=== PATIENT | female | born 1960 | race Caucasian/White ===

== ENCOUNTER 2016-08-28 11:42 | Observation (INO) ==
[2016-08-28] MEDS ORDERED: Ondansetron 4 MG/2 ML VIAL IVP ONE (11:53)
[2016-08-28] MEDS ORDERED: *HR* HYDROmorphone (PF) 1 MG/ML SYRINGE IVP ONE (11:53)
--- NOTE | 2016-08-28 11:56 | Emergency Department Note ---
Disposition Clinical Impression: Acute cholecystitis Disposition: Admitted As Inpatient Condition: Fair Referrals: Milton Pop DO [Non-Partnered Physician] - Forms: Work/School Release, ED Satisfaction Letter Time of Disposition: 14:18 Abdominal Pain HPI - General Chief Complaint: ED Abdominal Pain Stated Complaint: "Gallstone attack" Time Seen by Provider: 08/28/16 11:51 Source: patient, family Mode of arrival: ambulatory Limitations: no limitations Nursing Notes Reviewed: Yes Vital Signs Reviewed: Yes - History of Present Illness HPI Narrative: 56-year-old female comes in with acute onset of right upper quadrant pain after eating a sanchez sandwich this morning at 9:30. 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 Clinical presentation is consistent with gallbladder disease. Pt Subjective Complaint: abdominal pain Onset (ago): Just UNDERBASTER Consistency: constant Location: RUQ Pain Severity: moderate, severe Pain Scale: 6 Quality: aching Radiation: back Migration to: no migration Improves with: nothing Worsens with: nothing Context: history of similar episodes Associated symptoms: Reports: nausea, vomiting Treatments prior to arrival: none - Related Data Allergies Allergy/AdvReac Type Severity Reaction Status Date / Time benzocaine AdvReac Itching Verified 08/28/16 11:44 All systems ED: reviewed and negative except as stated. Constitutional: Denies: fever, chills, weakness, weight change Eyes: Denies: eye pain, eye discharge, vision change ENT ED: Denies: ear pain, throat pain, dental pain, hearing loss, epistaxis, congestion, dysphagia Cardiovascular: Denies: chest pain, palpitations, dyspnea on exertion, edema, syncope Respiratory: Denies: cough, dyspnea, wheezes, hemoptysis, stridor Gastrointestinal: Reports: abdominal pain, nausea, vomiting. Denies: diarrhea, constipation, hematemesis, melena, hematochezia Genitourinary: Denies: dysuria, frequency, hematuria, discharge Musculoskeletal: Denies: back pain, neck pain, arthralgia, myalgia Integumentary: Denies: rash, abrasion, lesions Neurological: Denies: headache, weakness, numbness, paresthesias, confusion, abnormal gait, vertigo Psychiatric: Denies: anxiety, depression, suicidal thoughts, homicidal thoughts , auditory hallucinations, visual hallucinations Endocrine: Denies: fatigue Hematological/Lymphatic: Denies: easy bleeding, easy bruising Allergic/Immunologic: Denies: facial swelling, urticaria Abdominal Pain PMH - Past Medical History Medical history: Reports: asthma, GERD Female Surgical History: Reports: other Psychiatric history: Reports: no psych history - Social History Smoking status: Never smoker Alcohol use: Reports: none Drug use: Reports: none Physical Exam - General Limitations: no limitations General appearance: alert, in no apparent distress - Head Head exam: atraumatic, normocephalic, normal inspection - Eye Eye exam: Present: normal appearance, PERRL, EOMI - ENT ENT exam: normal exam, normal oropharynx, mucous membranes moist - Neck Neck exam: Present: normal inspection, full ROM, trachea midline - Chest Chest inspection: Present: normal inspection, symmetric chest wall rise - Respiratory Respiratory exam: Present: normal lung sounds bilaterally - Cardiovascular Cardiovascular exam: Present: regular rate, normal rhythm, normal heart sounds - Abdominal Exam Abdominal exam: Present: soft, tenderness, Preston's sign. Absent: guarding, rebound Abdominal tenderness: Present: RUQ - Extremities Exam Extremities exam: Present: normal inspection, full ROM. Absent: tenderness, pedal edema - Expanded Lower Extremity Exam Neurovascular/Tendon exam: Absent: motor deficit, sensory deficit, tendon deficit Gait: observed and normal - Back Exam Back exam: Present: normal inspection, full ROM. Absent: tenderness - Neurological Exam Neurological exam: Present: alert, oriented X3 - Psychiatric Psychiatric exam: Present: normal affect, normal mood - Skin Skin exam: Present: warm, dry, intact, normal color Course - Consultations Consultation #1: Discussed with Dr. Coffman, admit. Time: 14:16 Vital Signs Temperature 97.5 F L 08/28/16 11:44 Pulse Rate 72 08/28/16 11:44 Respiratory Rate 18 08/28/16 11:44 Blood Pressure 166/101 08/28/16 11:44 O2 Sat by Pulse Oximetry 100 08/28/16 11:44 Temperature 97.5 F L 08/28/16 11:44 Pulse Rate 89 08/28/16 13:33 Respiratory Rate 18 08/28/16 13:33 Blood Pressure 170/79 08/28/16 13:33 O2 Sat by Pulse Oximetry 97 08/28/16 13:33 Oxygen Delivery Oxygen Delivery Nasal Cannula Abdominal Pain - Lab Data Lab results reviewed: Yes I reviewed the patient's lab results. Result diagrams: 08/28/16 12:50 08/28/16 12:50 Lab Results 08/28/16 08/28/16 08/28/16 Range/Units 12:50 12:50 12:50 WBC 8.5 (4.3-11.1) K/mcL RBC 5.61 H (3.82-4.97) M/mcL Hgb 14.6 (11.5-15.4) g/dL Hct 45.4 H (35.3-44.9) % MCV 80.9 L (83.0-100.0) fL MCH 26.0 L (28.0-33.3) pg MCHC 32.2 (31.6-35.5) g/dL RDW 14.8 H (11.5-14.5) % Plt Count 269 (140-400) K/mcL MPV 9.8 (9.4-12.4) fL Immature Gran % 0.4 (0-4) % Seg Neutrophils % 63.4 % Lymphocytes % 18.1 % Monocytes % 12.4 % Eosinophils % 4.6 % Basophils % 1.1 % Neutrophils # 5.4 (1.6-8.9) K/mcL Lymphocytes # 1.5 (0.6-4.6) K/mcL Monocytes # 1.1 (0.0-1.3) K/mcL Eosinophils # 0.4 (0.0-0.6) K/mcL Basophils # 0.1 (0.0-0.2) K/mcL Sodium 139 (136-145) mEq/L Potassium 3.9 (3.5-4.5) mEq/L Chloride 109 (98-109) mEq/L Carbon Dioxide 23 (19-29) mEq/L BUN 12 (7-20) mg/dL Creatinine 0.87 (0.57-1.11) mg/dL Est GFR ( Amer) > 60 (> 60) Est GFR (Non-Af Amer) > 60 (> 60) BUN/Creatinine Ratio 14 (6-26) Glucose 89 (70-99) mg/dL Calculated Osmolality 287 (280-300) Lactic Acid 1.5 (0.5-2.2) mmol/L Calcium 10.3 (8.6-10.8) mg/dL Total Bilirubin 0.4 (0.2-1.2) mg/dL Direct Bilirubin 0.2 (0.0-0.5) mg/dL Indirect Bilirubin 0.2 (0.0-1.2) mg/dL AST 37 H (5-34) Units/L ALT 40 (0-55) Units/L Alkaline Phosphatase 89 (38-126) Units/L Serum Total Protein 7.1 (6.0-8.3) g/dL Albumin 3.3 L (3.5-5.0) g/dL Globulin 3.8 H (2.4-3.5) g/dL Albumin/Globulin Ratio 0.9 L (1.1-2.2) Amylase 68 (25-125) Units/L Lipase 55 (8-78) Units/L Urine Color (Yellow) Urine Clarity (Clear) Urine pH (5.0-8.0) pH Units Ur Specific [place] (1.010-1.025) Urine Protein (Neg-Trace) mg/dL Urine Glucose (UA) (Normal) mg/dL Urine Ketones (Negative) mg/dL Urine Blood (Negative) Urine Nitrite (Negative) Urine Bilirubin (Negative) Urine Urobilinogen (Normal) mg/dL Ur Leukocyte Esterase (Negative) Urine Microscopic RBC (0-3) per hpf Urine Microscopic WBC (0-3) per hpf Ur Squamous Epith Cells (None-Few) per lpf Urine Bacteria (None-Few) per hpf Hyaline Casts (None-Few) per lpf Ur Culture Indicated? (NO) 08/28/16 Range/Units 12:59 WBC (4.3-11.1) K/mcL RBC (3.82-4.97) M/mcL Hgb (11.5-15.4) g/dL Hct (35.3-44.9) % MCV (83.0-100.0) fL MCH (28.0-33.3) pg MCHC (31.6-35.5) g/dL RDW (11.5-14.5) % Plt Count (140-400) K/mcL MPV (9.4-12.4) fL Immature Gran % (0-4) % Seg Neutrophils % % Lymphocytes % % Monocytes % % Eosinophils % % Basophils % % Neutrophils # (1.6-8.9) K/mcL Lymphocytes # (0.6-4.6) K/mcL Monocytes # (0.0-1.3) K/mcL Eosinophils # (0.0-0.6) K/mcL Basophils # (0.0-0.2) K/mcL Sodium (136-145) mEq/L Potassium (3.5-4.5) mEq/L Chloride (98-109) mEq/L Carbon Dioxide (19-29) mEq/L BUN (7-20) mg/dL Creatinine (0.57-1.11) mg/dL Est GFR ( Amer) (> 60) Est GFR (Non-Af Amer) (> 60) BUN/Creatinine Ratio (6-26) Glucose (70-99) mg/dL Calculated Osmolality (280-300) Lactic Acid (0.5-2.2) mmol/L Calcium (8.6-10.8) mg/dL Total Bilirubin (0.2-1.2) mg/dL Direct Bilirubin (0.0-0.5) mg/dL Indirect Bilirubin (0.0-1.2) mg/dL AST (5-34) Units/L ALT (0-55) Units/L Alkaline Phosphatase (38-126) Units/L Serum Total Protein (6.0-8.3) g/dL Albumin (3.5-5.0) g/dL Globulin (2.4-3.5) g/dL Albumin/Globulin Ratio (1.1-2.2) Amylase (25-125) Units/L Lipase (8-78) Units/L Urine Color Yellow (Yellow) Urine Clarity Clear (Clear) Urine pH 6.0 (5.0-8.0) pH Units Ur Specific [place] 1.016 (1.010-1.025) Urine Protein Negative (Neg-Trace) mg/dL Urine Glucose (UA) Normal (Normal) mg/dL Urine Ketones Negative (Negative) mg/dL Urine Blood Trace H (Negative) Urine Nitrite Negative (Negative) Urine Bilirubin Negative (Negative) Urine Urobilinogen Normal (Normal) mg/dL Ur Leukocyte Esterase Moderate H (Negative) Urine Microscopic RBC 3-5 H (0-3) per hpf Urine Microscopic WBC 3-5 H (0-3) per hpf Ur Squamous Epith Cells Many H (None-Few) per lpf Urine Bacteria None Seen (None-Few) per hpf Hyaline Casts None Seen (None-Few) per lpf Ur Culture Indicated? YES A (NO) - Radiology Data Radiology results reviewed: Yes I reviewed the patient's radiology results. Gallbladder Ultrasound 08/28/16 11:53 IMPRESSION: 1. Cholelithiasis with dilated common bile duct measuring 1.1 cm in diameter. Acute versus chronic cholecystitis cannot be excluded. Nuclear medicine hepatobiliary scintigraphy should be considered for further evaluation. 2. Fatty infiltration of the liver. 3. Obscuration of the pancreas due to bowel gas. Findings sent to the Results Communication [facility] to be communicated to the clinical service. D/ / Gian Cantu MD / Gian Cantu MD Interpreting Provider: Gian Cantu MD - EKG Data EKG attestation: Yes I reviewed and interpreted this EKG. EKG shows normal: sinus rhythm Rate: normal Rhythm: NSR Interpretation: no acute changes
[2016-08-28 12:57] LABS: Basophils # 0.1 K/mcL (0.0-0.2); Basophils % 1.1 %; Eosinophils # 0.4 K/mcL (0.0-0.6); Eosinophils % 4.6 %; Hematocrit 45.4 % (35.3-44.9); Hemoglobin 14.6 g/dL (11.5-15.4); Immature Granulocytes % 0.4 % (0-4); Lymphocytes # 1.5 K/mcL (0.6-4.6); Lymphocytes % 18.1 %; Mean Corpuscular HGB Conc 32.2 g/dL (31.6-35.5); Mean Corpuscular Volume 80.9 fL (83.0-100.0); Mean Platelet Volume 9.8 fL (9.4-12.4); Monocytes # 1.1 K/mcL (0.0-1.3); Monocytes % 12.4 %; Neutrophils # 5.4 K/mcL (1.6-8.9); Platelet Count 269 K/mcL (140-400); Red Blood Count 5.61 M/mcL (3.82-4.97); Red Cell Distribution Width 14.8 % (11.5-14.5); Segmented Neutrophils % 63.4 %
[2016-08-28 13:12] LABS: Bilirubin,Urine Negative (Negative); Blood,Urine Trace (Negative); Clarity,Urine Clear (Clear); Color,Urine Yellow (Yellow); Glucose,Urine (UA) Normal (Normal); Ketones,Urine Negative (Negative); Leukocyte Esterase,Urine Moderate (Negative); Nitrite,Urine Negative (Negative); Protein,Urine Negative (Neg-Trace); Specific Gravity,Urine 1.016 (1.010-1.025); Urobilinogen,Urine Normal (Normal)
[2016-08-28 13:13] LABS: Alanine Aminotransferase 40 Units/L (0-55); Albumin 3.3 g/dL (3.5-5.0); Albumin/Globulin Ratio 0.9 (1.1-2.2); Alkaline Phosphatase 89 Units/L (38-126); Amylase 68 Units/L (25-125); Aspartate Amino Transferase 37 Units/L (5-34); BUN/Creatinine Ratio 14 (6-26); Bilirubin,Direct 0.2 mg/dL (0.0-0.5); Bilirubin,Indirect 0.2 mg/dL (0.0-1.2); Bilirubin,Total 0.4 mg/dL (0.2-1.2); Blood Urea Nitrogen 12 mg/dL (7-20); Calcium 10.3 mg/dL (8.6-10.8); Carbon Dioxide 23 mEq/L (19-29); Chloride 109 mEq/L (98-109); Globulin 3.8 g/dL (2.4-3.5); Glucose 89 mg/dL (70-99); Lipase 55 Units/L (8-78); Osmolality,Calculated 287 (280-300); Potassium 3.9 mEq/L (3.5-4.5); Sodium 139 mEq/L (136-145); Total Protein 7.1 g/dL (6.0-8.3); eGFR For African Americans > 60 (> 60); eGFR For Non-African Americans > 60 (> 60)
[2016-08-28 13:19] LABS: Bacteria,Urine None Seen per hpf (None-Few); Hyaline Casts,Urine None Seen per lpf (None-Few); Squamous Epithelial Cell,Urine Many per lpf (None-Few)
--- NOTE | 2016-08-28 15:57 | General Surg History&Physical ---
Date of Encounter: 08/28/16 Time of Encounter: 15:54 Assessment and Plan (1) Symptomatic cholelithiasis Current Visit: Yes Status: Acute The assessment and plan as outlined above was discussed with the patient and/or family members who expressed understanding and agreement. All questions were answered. NPO IV fluids Plan for cholecystectomy likely in the next 24 hours Supportive care/pain control Serial abdominal exams Repeat am labs (2) Asthma Current Visit: Yes Status: Chronic The assessment and plan as outlined above was discussed with the patient and/or family members who expressed understanding and agreement. All questions were answered. Continue home medications Qualifiers: Asthma severity: mild intermittent Asthma complication type: uncomplicated Qualified Code(s): J45.20 - Mild intermittent asthma, uncomplicated (3) Hypertension Current Visit: Yes Status: Chronic The assessment and plan as outlined above was discussed with the patient and/or family members who expressed understanding and agreement. All questions were answered. Continue home medication regimen with a sip of water Qualifiers: Hypertension type: essential hypertension Qualified Code(s): I10 - Essential (primary) hypertension (4) DVT prophylaxis Current Visit: Yes Status: Acute The assessment and plan as outlined above was discussed with the patient and/or family members who expressed understanding and agreement. All questions were answered. EPCDs to bilateral lower extremities for DVT prophylaxis History of Present Illness Chief complaint: RUQ pain HPI: Ms. Vásquez is a 56 year old female who presents to the ED with sudden onset of RUQ pain after eating a sanchez sandwich at 0930 this morning. She states that the pain is sharp and stabbing and is located in the RUQ. It does occasionally radiate into her back. She has had 2 previous episodes similar to this with the last episode being 6 months ago. She states that this is the worst that the pain has ever been. Denies nausea and vomiting. Admits to reflux which has been uncontrolled for at least the past year. Denies any changes in bowel habits. Denies any fevers/chills. Denies any shortness of breath or chest pains. Denies any difficulty with urination. She does have a known history of gallstones which was confirmed by US. Her CBD was dilated at 1.1cm. Past Med Surg Social Fam HX - Past Medical History Source: patient Medical history: asthma, GERD, hypertension Psychiatric history: no psych history - Past Surgical History Surgical History: other (tubal ligation, achilles tendon repair, repair of shattered heel) - Social History Smoking Status: Never smoker Smokeless Tobacco Status: No Alcohol use: none Drug use: none Occupational status: employed Current living situation: Home - Independent Activity Level: Independent ambulation - Family History Mother Living Status: Age at : 92 Cause of : pneumonia Father Living Status: Age at : 68 Hx Family Cancer: Yes (metastatic cancer, unknown primary) Sister Hx Family Cardiac Disorders: Yes (CAD) Brother Hx Family Cardiac Disorders: Yes (CAD) Hx Family Neurologic Disorders: Yes (epilepsy) Medications and Allergies Albuterol Sulfate [Proair Hfa] 2 puff IH Q4H PRN 08/28/16 [History] Fluticasone/Salmeterol [Advair 250-50 Diskus] 1 each IH DAILY 08/28/16 [History] Levocetirizine Dihydrochloride [Xyzal] 5 mg PO DAILY 08/28/16 [History] Lisinopril [Zestril] 10 mg PO DAILY 08/28/16 [History] Mometasone Furoate [Nasonex] 2 spray NS DAILY PRN 08/28/16 [History] Allergies benzocaine Adverse Reaction (Verified 08/28/16 11:44) Itching Review of Systems All systems PM: reviewed and no additional remarkable complaints except as stated (in the HPI) All systems PM: A 10-system review of systems was performed and is negative for pertinent findings except as documented above in the HPI. General Surgery Exam Initial Vital Signs Temp Pulse Resp BP Pulse Ox 97.5 F L 72 18 166/101 100 08/28/16 11:44 08/28/16 11:44 08/28/16 11:44 08/28/16 11:44 08/28/16 11:44 - General physical appearance well developed, well nourished, moderate pain - Eyes PERRL, normal ocular movement - ENT normal mucosa, atraumatic, normocephalic - Neck trachea midline - Respiratory normal respiratory effort, clear to auscultation - Cardiovascular Cardiovascular exam: Present: RRR - Abdomen Abdomen general surgery: Present: bowel sounds present, soft, tender Abdominal Tenderness: Present: RUQ - Integumentary Integumentary general surgery: Present: warm and dry - Neurologic Present: CN 2-12 grossly intact - Psychiatric Psychiatric general surgery: Present: appropriate, oriented to person, oriented to place, oriented to time, speech is normal, memory intact Results - Labs 08/28/16 12:50 08/28/16 12:50 Abnormal lab results RBC 5.61 M/mcL (3.82-4.97) H 08/28/16 12:50 Hct 45.4 % (35.3-44.9) H 08/28/16 12:50 MCV 80.9 fL (83.0-100.0) L 08/28/16 12:50 MCH 26.0 pg (28.0-33.3) L 08/28/16 12:50 RDW 14.8 % (11.5-14.5) H 08/28/16 12:50 AST 37 Units/L (5-34) H 08/28/16 12:50 Albumin 3.3 g/dL (3.5-5.0) L 08/28/16 12:50 Globulin 3.8 g/dL (2.4-3.5) H 08/28/16 12:50 Albumin/Globulin Ratio 0.9 (1.1-2.2) L 08/28/16 12:50 Urine Blood Trace (Negative) H 08/28/16 12:59 Ur Leukocyte Esterase Moderate (Negative) H 08/28/16 12:59 Urine Microscopic RBC 3-5 per hpf (0-3) H 08/28/16 12:59 Urine Microscopic WBC 3-5 per hpf (0-3) H 08/28/16 12:59 Ur Squamous Epith Cells Many per lpf (None-Few) H 08/28/16 12:59 Ur Culture Indicated? YES (NO) A 08/28/16 12:59 All other labs normal. - Imaging US - abdomen: report reviewed Additional studies: Gallbladder Ultrasound 08/28/16 11:53 IMPRESSION: 1. Cholelithiasis with dilated common bile duct measuring 1.1 cm in diameter. Acute versus chronic cholecystitis cannot be excluded. Nuclear medicine hepatobiliary scintigraphy should be considered for further evaluation. 2. Fatty infiltration of the liver. 3. Obscuration of the pancreas due to bowel gas. Findings sent to the Results Communication Center to be communicated to the clinical service. D/ / Gian Cantu MD / Gian Cantu MD Interpreting Provider: Gian Cantu MD - Attending Attestation I examined this patient and my medical decision-making was reviewed with the CROP QUANTITATIVE GENETICIST/PA/Advanced Practice Nurse/Resident Physician. I agree with the documented findings, disposition and treatment plan as described except to the extent set forth below.
[2016-08-28] MEDS ORDERED: Ondansetron 4 MG/2 ML VIAL IVP PRN (16:08)
[2016-08-28] MEDS ORDERED: Naloxone 0.4 MG/ML INJ IVP PRN (16:08)
[2016-08-28] MEDS ORDERED: Fluticasone Propionate Nasal 50 MCG/SPRAY BOTTLE NS PRN (16:11)
--- NOTE | 2016-08-28 16:11 | Electrocardiograph Report ---
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
[2016-08-28] MEDS: *HR* HYDROmorphone (PF) 1 MG/ML SYRINGE IVP PRN (16:38)
[2016-08-28] MEDS: 0.9 % Sodium Chloride 1,000 ML IVC SCH (16:39)
--- NOTE | 2016-08-28 23:00 | Anesthesia Evaluation PreOp ---
<Cornelia Jay - Last Filed: 08/28/16 22:59> Date of Encounter: 08/28/16 - Past History Planned Operation: Lap cholecystectomy Cardiac History: HTN Pulmonary History: Asthma RESPIRATORY MANAGER History: Denies Any Significant HX Other Medical History: GERD Anesthesia History: Past Anesthesia (tubal ligation, achilles tendon repair, repair of shattered heel) Alcohol Use: none Drug use: none Medications and Allergies Albuterol Sulfate [Proair Hfa] 2 puff IH Q4H PRN 08/28/16 [History] Fluticasone/Salmeterol [Advair 250-50 Diskus] 1 each IH DAILY 08/28/16 [History] Levocetirizine Dihydrochloride [Xyzal] 5 mg PO DAILY 08/28/16 [History] Lisinopril [Zestril] 10 mg PO DAILY 08/28/16 [History] Mometasone Furoate [Nasonex] 2 spray NS DAILY PRN 08/28/16 [History] Docusate [Colace] 100 mg PO BID #30 capsule 08/29/16 [Rx] OxyCODONE/APAP 5/325 [Percocet 5/325 MG] 1 each PO Q6HR PRN #30 tablet 08/29/16 [Rx] Allergies benzocaine Adverse Reaction (Verified 08/28/16 11:44) Itching - Meds/Allergy Pre-op Review Medications Reviewed: Yes Allergies Reviewed: Yes Beta Blockers on Current Med List: No Anesthesia Results - Labs 08/28/16 12:50 08/28/16 12:50 - Imaging EKG: report reviewed, image reviewed (SR, wnl) Anesthesia Exam Last Vital Signs Temp 97.6 F 08/28/16 19:02 Pulse 66 08/28/16 19:02 Resp 14 08/28/16 19:02 BP 116/76 08/28/16 19:02 Pulse Ox 94 08/28/16 19:02 Weight: 90 kg Anesthesia Assess/Plan ASA Score: 2 Anesthetic Plan: General Monitoring Plan: Standard Monitors Recovery Plan: PACU <Ambrose Rooney - Last Filed: 08/29/16 18:10> Date of Encounter: 08/29/16 Time of Encounter: 16:00 - Past History Cardiac History: HTN Pulmonary History: Asthma RESPIRATORY MANAGER History: Denies Any Significant HX Other Medical History: GERD Anesthesia History: Past Anesthesia : No Alcohol Use: none Drug use: none - Meds/Allergy Pre-op Review Medications Reviewed: Yes Allergies Reviewed: Yes Beta Blockers on Current Med List: No Anesthesia Results - Labs 08/29/16 02:36 08/29/16 02:36 - Imaging EKG: report reviewed Anesthesia Exam O2 Sat Weight 88.677 kg O2 Sat by Pulse Oximetry 98 O2 Sat by Pulse Oximetry 97 O2 Sat by Pulse Oximetry 98 O2 Sat by Pulse Oximetry 100 O2 Sat by Pulse Oximetry 100 O2 Sat by Pulse Oximetry 100 O2 Sat by Pulse Oximetry 100 O2 Sat by Pulse Oximetry 99 O2 Sat by Pulse Oximetry 96 O2 Sat by Pulse Oximetry 98 O2 Sat by Pulse Oximetry 99 O2 Sat by Pulse Oximetry 97 O2 Sat by Pulse Oximetry 94 Vital Signs Temp Pulse Resp BP Pulse Ox 97.5 F L 72 18 166/101 100 08/28/16 11:44 08/28/16 11:44 08/28/16 11:44 08/28/16 11:44 08/28/16 11:44 Height: 5'7 NPO (# of Hours): MN0 - HEENT Pupil (Motor): Pupils equal, EOMI Mallampati: II Teeth: Normal Oral Opening: Greater than 3 - RESPIRATORY MANAGER LOC: Oriented RESPIRATORY MANAGER Motor: Normal RUE, Normal LUE, Normal RLE, Normal LLE, Normal Face RESPIRATORY MANAGER Sensory: Normal: RUE, LUE, RLE, LLE, Face - Cardiac Rhythm: Regular Murmur: None JVD: No Carotid Bruit: No - Pulmonary Breath Sounds: bilateral Clear Respiratory Effort: Symmetrical Anesthesia Assess/Plan ASA Score: 2 Modified Wilmer Scale for Level of Consciousness: Cooperative, oriented, and tranquil Anesthetic Plan: General Monitoring Plan: Standard Monitors Recovery Plan: PACU
[2016-08-29] MEDS: *HR* HYDROmorphone (PF) 1 MG/ML SYRINGE IVP PRN ×3 (00:17→17:42)
[2016-08-29 03:20] LABS: Basophils # 0.1 K/mcL (0.0-0.2); Basophils % 1.2 %; Eosinophils # 0.4 K/mcL (0.0-0.6); Eosinophils % 5.6 %; Hematocrit 40.2 % (35.3-44.9); Immature Granulocytes % 0.2 % (0-4); Lymphocytes # 1.7 K/mcL (0.6-4.6); Lymphocytes % 24.8 %; Mean Corpuscular HGB Conc 32.1 g/dL (31.6-35.5); Mean Corpuscular Hemoglobin 26.5 pg (28.0-33.3); Mean Corpuscular Volume 82.7 fL (83.0-100.0); Mean Platelet Volume 9.9 fL (9.4-12.4); Monocytes # 0.9 K/mcL (0.0-1.3); Monocytes % 13.1 %; Neutrophils # 3.7 K/mcL (1.6-8.9); Platelet Count 241 K/mcL (140-400); Red Blood Count 4.86 M/mcL (3.82-4.97); Red Cell Distribution Width 15.2 % (11.5-14.5); Segmented Neutrophils % 55.1 %
[2016-08-29 03:29] LABS: Hemoglobin 12.9 g/dL (11.5-15.4)
[2016-08-29 03:37] LABS: Alanine Aminotransferase 55 Units/L (0-55); Albumin 2.7 g/dL (3.5-5.0); Albumin/Globulin Ratio 0.9 (1.1-2.2); Alkaline Phosphatase 89 Units/L (38-126); Aspartate Amino Transferase 45 Units/L (5-34); BUN/Creatinine Ratio 14 (6-26); Bilirubin,Direct 0.2 mg/dL (0.0-0.5); Bilirubin,Indirect 0.5 mg/dL (0.0-1.2); Bilirubin,Total 0.7 mg/dL (0.2-1.2); Blood Urea Nitrogen 10 mg/dL (7-20); Calcium 9.3 mg/dL (8.6-10.8); Carbon Dioxide 20 mEq/L (19-29); Chloride 110 mEq/L (98-109); Globulin 3.1 g/dL (2.4-3.5); Glucose 90 mg/dL (70-99); Osmolality,Calculated 285 (280-300); Potassium 4.2 mEq/L (3.5-4.5); Sodium 138 mEq/L (136-145); Total Protein 5.8 g/dL (6.0-8.3); eGFR For African Americans > 60 (> 60); eGFR For Non-African Americans > 60 (> 60)
[2016-08-29] MEDS: 0.9 % Sodium Chloride 1,000 ML IVC SCH (05:03)
[2016-08-29] MEDS ORDERED: Budesonide/Formoterol 80/4.5 MDI IH SCH (09:00)
[2016-08-29] MEDS ORDERED: (Levocetirizine Dihydrochloride [Xyzal] 5 MG) PO SCH (09:00)
[2016-08-29] MEDS ORDERED: Albuterol 2.5 MG/3 ML NEBULIZER IH ONE (15:54)
[2016-08-29] MEDS ORDERED: *HR* Rocuronium Bromide 50 MG/5 ML VIAL ONE (15:59)
[2016-08-29] MEDS ORDERED: *HR* FentaNYL (PF) 100 MCG/2 ML VIAL ONE (15:59)
[2016-08-29] MEDS ORDERED: *HR* Propofol 200 MG/20 ML VIAL IVP ONE (15:59)
[2016-08-29] MEDS ORDERED: *HR* Midazolam HCl 2 MG/2 ML VIAL ONE (15:59)
[2016-08-29] MEDS ORDERED: Lidocaine -MPF 4% 5 ML AMPUL ONE (15:59)
[2016-08-29] MEDS ORDERED: Neostigmine Methylsulfate 3 MG/3 ML SYRINGE ONE (15:59)
[2016-08-29] MEDS ORDERED: Ondansetron 4 MG/2 ML VIAL ONE (15:59)
[2016-08-29] MEDS ORDERED: Albuterol 2.5 MG/3 ML NEBULIZER ONE (15:59)
[2016-08-29] MEDS ORDERED: Dexamethasone 4 MG/ML VIAL ONE (15:59)
[2016-08-29] MEDS ORDERED: Lidocaine -MPF 2% 2 ML VIAL ONE (16:00)
[2016-08-29] MEDS ORDERED: Ketorolac 30 MG/ML VIAL ONE (16:44)
[2016-08-29] MEDS ORDERED: *HR* HYDROmorphone 2 MG/ML SYRINGE ONE (16:50)
[2016-08-29] MEDS ORDERED: *HR* Promethazine 25 MG/ML VIAL IVP PRN (16:52)
--- NOTE | 2016-08-29 17:23 | Discharge Summary ---
Date of Encounter: 08/29/16 Time of Encounter: 17:19 - Discharge Diagnosis (1) Symptomatic cholelithiasis Priority: Primary Status: Acute (2) Asthma Priority: Secondary Status: Chronic Qualifiers: Asthma severity: mild intermittent Asthma complication type: uncomplicated Qualified Code(s): J45.20 - Mild intermittent asthma, uncomplicated (3) Hypertension Priority: Secondary Status: Chronic Qualifiers: Hypertension type: essential hypertension Qualified Code(s): I10 - Essential (primary) hypertension (4) DVT prophylaxis Priority: Secondary Status: Acute - Discharge Medications Prescriptions: OxyCODONE/APAP 5/325 [Percocet 5/325 MG] 1 each PO Q6HR PRN #30 tablet PRN Reason: Pain Docusate [Colace] 100 mg PO BID #30 capsule Home Medications: Albuterol Sulfate [Proair Hfa] 2 puff IH Q4H PRN 08/28/16 [History] Fluticasone/Salmeterol [Advair 250-50 Diskus] 1 each IH DAILY 08/28/16 [History] Levocetirizine Dihydrochloride [Xyzal] 5 mg PO DAILY 08/28/16 [History] Lisinopril [Zestril] 10 mg PO DAILY 08/28/16 [History] Mometasone Furoate [Nasonex] 2 spray NS DAILY PRN 08/28/16 [History] Docusate [Colace] 100 mg PO BID #30 capsule 08/29/16 [Rx] OxyCODONE/APAP 5/325 [Percocet 5/325 MG] 1 each PO Q6HR PRN #30 tablet 08/29/16 [Rx] Allergies/Adverse Reactions: Allergies benzocaine Adverse Reaction (Verified 08/28/16 11:44) Itching General Surgery Exam Initial Vital Signs Temp Pulse Resp BP Pulse Ox 97.5 F L 72 18 166/101 100 08/28/16 11:44 08/28/16 11:44 08/28/16 11:44 08/28/16 11:44 08/28/16 11:44 Date of admission: 08/28/16 14:30 Primary care physician: PCP NO Discharging clinician: John Wilson) Anticipated date of discharge: 08/29/16 - Patient Status Disposition: Home, Self-Care Condition: Good Functional capacity at discharge: independent ambulation Overall status at discharge: patient is progressing back to baseline - Discharge Instructions Follow Up With: NO,PCP [Primary Care Provider] - Lizabeth Wilson STOPPER MAKER [Advanced Practice Nurse] - 09/10/16 9:30 am (surgery follow-up) Additional Instructions: #1 may shower, no tub bath for 2 weeks #2 wash incisions with soap and water and pat dry daily #3 no lifting, pushing, pulling more than 15 pounds for the next 2 weeks #4 no driving until off narcotics for 24 hours and able to safely react in the car #5 may climb stairs - Diet and Activity Activity: other (See additional instructions above) Diet: advance to your usual diet - Hospital Course Hospital course: Ms. Vásquez is a 56 year old female presented to the hospital with sudden onset of abdominal pain. She was admitted to the hospital for symptomatic cholelithiasis. She was taken to the operating room for a laparoscopic cholecystectomy. May discharge to home when meets discharge criteria including: tolerating liquids without nausea/vomiting, pain controlled with oral medication , vital signs are stable and afebrile, voiding and ambulating without dificulty. - Time Spent with Patient Total time spent providing and/or coordinating discharge services: Less than 30 minutes Labs on day of discharge: Labs from last 24 hours 08/29/16 08/29/16 02:36 02:36 WBC 6.7 RBC 4.86 Hgb 12.9 D Hct 40.2 MCV 82.7 L MCH 26.5 L MCHC 32.1 RDW 15.2 H Plt Count 241 MPV 9.9 Immature Gran % 0.2 Seg Neutrophils % 55.1 Lymphocytes % 24.8 Monocytes % 13.1 Eosinophils % 5.6 Basophils % 1.2 Neutrophils # 3.7 Lymphocytes # 1.7 Monocytes # 0.9 Eosinophils # 0.4 Basophils # 0.1 Sodium 138 Potassium 4.2 Chloride 110 H Carbon Dioxide 20 BUN 10 Creatinine 0.73 Est GFR ( Amer) > 60 Est GFR (Non-Af Amer) > 60 BUN/Creatinine Ratio 14 Glucose 90 Calculated Osmolality 285 Calcium 9.3 Total Bilirubin 0.7 Direct Bilirubin 0.2 Indirect Bilirubin 0.5 AST 45 H ALT 55 Alkaline Phosphatase 89 Serum Total Protein 5.8 L Albumin 2.7 L Globulin 3.1 Albumin/Globulin Ratio 0.9 L - Attending Attestation I examined this patient and my medical decision-making was reviewed with the ROOFING SUBCONTRACTOR/PA/Advanced Practice Nurse/Resident Physician. I agree with the documented findings, disposition and treatment plan as described except to the extent set forth below.
--- NOTE | 2016-08-29 17:30 | Operative Note ---
Date of procedure: 08/29/16 Pre-op diagnosis: Acute cholecystitis Post-op diagnosis: same Procedure: Laparoscopic cholecystectomy with cholangiogram Anesthesia: KINGSLEY Surgeon: John Coffman Estimated blood loss (cc): 5 Condition: stable Disposition: same day Procedure in Detail: After informed consent this patient was taken the operating room placed supine position. After adequate sedation anesthesia the abdomen was prepped and draped. A proper timeout was performed. Two towel clamps are placed at the umbilicus and a Veres needle was inserted into the abdomen. A 5 mm incision was made at the umbilicus. A 12 mm incision was made in the subxiphoid region. Two 5 mm incisions were made in the right upper quadrant that were 4 finger breadths and 6 finger breadths below the costal margin. The gallbladder was identified, retracted anteriorly and cephalad, and the infundibulum was skeletonized. The cystic duct was easily identified and was dissected free. A ductotomy was created in the cystic duct. A taut catheter was placed within the cystic duct and clipped. A cholangiogram was performed. Contrast filled the cystic duct, common hepatic duct, hepatic radicles, and the distal common bile duct. There was flow of contrast into the duodenum. Once this was confirmed the clippers removed, the taut catheter was removed as well, and the cystic duct was clipped distally. The cystic duct was then transected with scissors. The gallbladder was resected off the liver surface. There was excellent hemostasis. The gallbladder was then retrieved through the 12 mm cannula site. At this point the abdomen was suctioned dry and the pneumoperitoneum was then evacuated. All ports were removed. The 12 mm cannula site was closed with an 0 Vicryl suture in [id number] fashion. The skin was closed with 4-0 Vicryl suture. Dermabond was placed as well. All instrument counts and needle counts are correct in the operation. The patient tolerated the procedure well and was transferred to the PACU in stable condition.
--- NOTE | 2016-08-29 18:11 | Anesthesia Evaluation Post Op ---
Date of Encounter: 08/29/16 Time of Encounter: 18:15 - Vital Signs Vital Signs: Vital Signs/O2 Sat/Glucose, Most Current Temp Pulse Resp BP Pulse Ox 08/29/16 18:07 98.6 F 63 16 142/75 98 08/29/16 17:57 61 12 137/95 97 08/29/16 17:47 68 12 145/78 98 08/29/16 17:37 97.2 F L 62 12 155/82 100 08/29/16 17:27 66 16 170/87 100 08/29/16 17:17 66 12 149/79 100 08/29/16 17:07 98.3 F 77 14 139/78 100 - Lungs Lungs: Clear Ascult./Percussion - Airway Airway: Non-obstructed - Cardiovascular Regular Rate - Mental Status Mental Status: Alert & Oriented, Answers Appropriately - Pain Pain Scale: 0 - Nausea Vomiting Nausea Vomiting: Not Present - Hydration Hydration: Ice chips - Discharge PostOp Status: Transfer Patient to floor
[2016-08-29] MEDS ORDERED: Fluticasone Propionate Nasal 50 MCG/SPRAY BOTTLE NS PRN (18:35)
[2016-08-29] MEDS ORDERED: Naloxone 0.4 MG/ML INJ IVP PRN (18:35)
[2016-08-29] MEDS ORDERED: *HR* HYDROmorphone (PF) 1 MG/ML SYRINGE IVP PRN (18:35)
[2016-08-29] MEDS ORDERED: 0.9 % Sodium Chloride 1,000 ML IVC SCH (18:35)
[2016-08-29] MEDS ORDERED: Ondansetron 4 MG/2 ML VIAL IVP PRN (18:35)
[2016-08-29 19:56] VITALS: BP 118/70
[2016-08-30] MEDS ORDERED: LEVOCETIRIZINE DIHYDROCHLORIDE 5 MG PO SCH (09:00)
[2016-08-30] MEDS ORDERED: Budesonide/Formoterol 80/4.5 MDI IH SCH (09:00)
== END 2016-08-29 21:41 | disposition home or self-care (01) ==
LOC: 3BNU 11:42 → EMEROO 11:42 → 3BNU 15:04
PROVIDERS: ADMIT Surgery; ATTEND Surgery